=== PATIENT | female | born 1985 | race Caucasian/White ===

== ENCOUNTER 2017-11-02 14:00 | Outpatient (CLI) | payer OTHER ==
[2017-11-02 16:12] LABS: ADD UMIC YES; UR ASCORBIC ACID NEGATIVE (NEGATIVE); UR BILIRUBIN (Dip) NEGATIVE (NEGATIVE); UR BLOOD (Dip) NEGATIVE (NEGATIVE); UR CLARITY SLIGHTLY CLOUDY (CLEAR); UR COLOR YELLOW (YELLOW); UR GLUCOSE (Dip) NEGATIVE (NEGATIVE); UR KETONES (Dip) NEGATIVE (NEGATIVE); UR LEUKOCYTE ESTERASE (Dip) 3+ Leu/ul (NEGATIVE); UR MUCUS FEW /HPF (NONE SEEN); UR NITRITE (Dip) NEGATIVE (NEGATIVE); UR RBC 16 /HPF (0-5); UR SPECIFIC GRAVITY (Dip) 1.009 (1.003-1.030); UR SQUAMOUS EPITHELIAL CELL FEW /HPF (FEW); UR TOTAL PROTEIN (Dip) NEGATIVE (NEGATIVE); UR UROBILINOGEN (Dip) NEGATIVE (NEGATIVE); UR WBC 3 /HPF (0-5)
[2017-11-02 16:24] LABS: RUPTURE FETAL MEMBRANES NEGATIVE (NEGATIVE)
== END 2017-11-02 17:50 | disposition home or self-care (01) ==
LOC: OBT 14:00 → L-D 14:00 → OBT 17:50
DX: O42.913 Preterm premature rupture of membranes, unspecified as to length of time between rupture and onset of labor, third trimester (principal); Z3A.33 33 weeks gestation of pregnancy
CPT/HCPCS: 76818; 81001; 84112; 87086

== ENCOUNTER 2017-12-04 13:55 | Outpatient (CLI) | payer OTHER | END 2017-12-04 16:25 | disposition home or self-care (01) | LOC: OBT 13:55 → L-D 13:55 → OBT 16:25 | DX: O40.3XX0 Polyhydramnios, third trimester, not applicable or unspecified (principal); Z3A.38 38 weeks gestation of pregnancy | CPT/HCPCS: 76815; 76818 ==

== ENCOUNTER 2017-12-10 09:37 | Inpatient (IN) | payer OTHER ==
[~2017-12-10 09:37] MED LIST: OXYTOCIN 30 UNITS/LR 500 ML BAG IV
[2017-12-10] MEDS ORDERED: MISOPROSTOL 200 MCG TAB PR ×2 (10:30→17:30)
[2017-12-10] MEDS ORDERED: METHYLERGONOVINE 0.2 MG INJ IM ×2 (10:30→17:30)
[2017-12-10] MEDS ORDERED: CARBOPROST 250 MCG INJ IM ×2 (10:30→17:30)
[2017-12-10 10:48] LABS: ADD MAN DIFF? NO
[2017-12-10 10:58] LABS: BASOPHILS % 0.3 % (0.0-2.0); EOSINOPHILS # 0.1 10^3/ul (0.0-0.5); EOSINOPHILS % 0.9 % (0.0-7.0); HEMATOCRIT 38.8 % (37.0-47.0); HEMOGLOBIN 12.8 g/dl (12.0-16.0); LYMPHOCYTES # 1.7 10^3/ul (0.8-2.9); LYMPHOCYTES % 22.5 % (15.0-51.0); MEAN CORPUSCULAR HEMOGLOBIN 30.5 pg (29.0-33.0); MEAN CORPUSCULAR VOLUME 92.4 fl (82.0-101.0); MEAN PLATELET VOLUME 10.7 fl (7.4-10.4); MONOCYTE # 0.4 10^3/ul (0.3-0.9); MONOCYTES % 5.5 % (0.0-11.0); NEUTROPHIL # 5.4 10^3/ul (1.6-7.5); NEUTROPHILS % 70.1 % (39.0-77.0); PLATELET COUNT 256 10^3/UL (140-415); RED CELL DISTRIBUTION WIDTH 13.4 % (11.5-14.5)
[2017-12-10 10:58] LABS: WHITE BLOOD COUNT 7.7 10^3/ul (4.8-10.8)
[2017-12-10 11:13] LABS: PROTIME 12.2 Sec (11.9-14.9)
[2017-12-10 11:14] LABS: PARTIAL THROMBOPLASTIN TIME 25.4 Sec (25.0-35.0)
[2017-12-10] MEDS ORDERED: BUPIVACAINE 0.75%/DEXT (SPINAL) 2 ML INJ (12:51)
[2017-12-10] MEDS ORDERED: morphine SULFATE/PF (10 MG/10 ML) INJ (12:51)
[2017-12-10] MEDS ORDERED: NALOXONE (0.4 MG/ML) INJ IV (13:00)
[2017-12-10] MEDS ORDERED: HYDROmorphONE 0.5 MG/0.5 ML SYG IV ×2 (13:00)
[2017-12-10] MEDS ORDERED: DIPHENHYDRAMINE 50 MG INJ IV ×2 (13:00)
[2017-12-10] MEDS ORDERED: ONDANSETRON 4 MG INJ IV ×2 (13:00)
[2017-12-10] MEDS ORDERED: FENTAnyl 50 MCG/ML VIAL IV ×2 (13:00)
[2017-12-10] MEDS ORDERED: KETOROLAC 30 MG INJ IV (13:00)
[2017-12-10] MEDS ORDERED: HYDROmorphONE 1 MG/5 ML IV SYRINGE IV ×3 (13:00)
[2017-12-10] MEDS ORDERED: METOCLOPRAMIDE 10 MG INJ IV (13:00)
[2017-12-10] MEDS ORDERED: PHENYLephrine (100 MCG/ML) 5ML SYG ×4 (13:04→14:06)
[2017-12-10] MEDS ORDERED: FENTAnyl 50 MCG/ML VIAL (13:42)
[2017-12-10] MEDS ORDERED: OXYTOCIN 30 UNITS/LR 500 ML IV ×2 (14:30→17:30)
[2017-12-10] MEDS: CEFAZOLIN 2 GM/50 ML (PMX) 50 ML IV (14:30)
[2017-12-10] MEDS: OXYTOCIN 30 UNITS/LR 500 ML IV ×2 (14:33→18:25)
[2017-12-10 17:23] LABS: RAPID PLASMA REAGIN NONREACTIVE (NR)
[2017-12-10] MEDS ORDERED: OXYCODONE/ACETAMINOPHEN (5/325) TAB PO (17:30)
[2017-12-10] MEDS ORDERED: HYDROCODONE/APAP (5/325) TAB PO ×2 (17:30)
[2017-12-10] MEDS ORDERED: LANOLIN 7 GM TUBE TOP (17:30)
[2017-12-10] MEDS ORDERED: IBUPROFEN 600 MG TAB PO (18:00)
[2017-12-10] MEDS: SENNA/DOCUSATE NA (8.6MG/50MG) TAB PO (21:00)
[2017-12-10] MEDS: CEFAZOLIN 1 GM/50 ML (PMX) 50 ML IVPB (21:47)
[2017-12-11] MEDS: LACTATED RINGER'S 1,000 ML IV (02:27)
[2017-12-11] MEDS: OXYTOCIN 30 UNITS/LR 500 ML IV ×4 (05:02→21:11)
[2017-12-11] MEDS: KETOROLAC 30 MG INJ IV ×2 (05:02→12:19)
[2017-12-11 07:16] LABS: ADD MAN DIFF? NO
[2017-12-11 07:19] LABS: BASOPHILS % 0.2 % (0.0-2.0); EOSINOPHILS % 0.4 % (0.0-7.0); HEMATOCRIT 31.9 % (37.0-47.0); HEMOGLOBIN 10.8 g/dl (12.0-16.0); LYMPHOCYTES # 1.9 10^3/ul (0.8-2.9); LYMPHOCYTES % 24.1 % (15.0-51.0); MEAN CORPUSCULAR HEMOGLOBIN 30.7 pg (29.0-33.0); MEAN CORPUSCULAR HGB CONC 33.9 g/dl (32.0-37.0); MEAN CORPUSCULAR VOLUME 90.6 fl (82.0-101.0); MEAN PLATELET VOLUME 10.8 fl (7.4-10.4); MONOCYTE # 0.5 10^3/ul (0.3-0.9); MONOCYTES % 5.6 % (0.0-11.0); NEUTROPHIL # 5.5 10^3/ul (1.6-7.5); NEUTROPHILS % 69.1 % (39.0-77.0); PLATELET COUNT 214 10^3/UL (140-415); RED BLOOD COUNT 3.52 10^6/ul (4.20-5.40); RED CELL DISTRIBUTION WIDTH 13.3 % (11.5-14.5)
[2017-12-11] MEDS: SENNA/DOCUSATE NA (8.6MG/50MG) TAB PO ×2 (09:16→20:23)
[2017-12-11] MEDS: IBUPROFEN 600 MG TAB PO (20:23)
[2017-12-12] MEDS: OXYTOCIN 30 UNITS/LR 500 ML IV (01:11)
[2017-12-12] MEDS: IBUPROFEN 600 MG TAB PO ×4 (02:26→18:24)
[2017-12-12] MEDS: SENNA/DOCUSATE NA (8.6MG/50MG) TAB PO ×3 (08:32→22:20)
[2017-12-12] MEDS: OXYCODONE/ACETAMINOPHEN (5/325) TAB PO ×2 (08:32→22:20)
[2017-12-13] MEDS: IBUPROFEN 600 MG TAB PO ×3 (00:07→12:41)
[2017-12-13] MEDS: SENNA/DOCUSATE NA (8.6MG/50MG) TAB PO (09:00)
[2017-12-13] MEDS: OXYCODONE/ACETAMINOPHEN (5/325) TAB PO (09:10)
[2017-12-13] MEDS: DIPHTH/TET/ACEL PERTUSS (ADULT) 0.5 ML VIAL IM* (09:11)
== END 2017-12-13 16:20 | disposition home or self-care (01) | DRG 766 ==
LOC: L-D 09:37 → PP1 16:45
PROVIDERS: Obstetrics & Gynecology
PROC: 10D00Z1 Extraction of Products of Conception, Low, Open Approach (ICD-10-PCS; principal; 2017-12-10 12:30)
PROC: 3E033VJ Introduction of Other Hormone into Peripheral Vein, Percutaneous Approach (ICD-10-PCS; 2017-12-10 12:30)
DX: O34.211 Maternal care for low transverse scar from previous cesarean delivery (principal); Z3A.39 39 weeks gestation of pregnancy; Z37.0 Single live birth
CPT/HCPCS: 85025; 85610; 85730; 86592; 86850; 86900; 86901; 90715; 99464